=== PATIENT | male | born 1940 | race Two or more races ===

== ENCOUNTER 2024-11-27 07:10 | Day surgery (SDC) | payer MEDICARE, MEDICAID, SELFPAY ==
[2024-11-26 11:29] VITALS: BMI 23.3
[2024-11-26 12:36] LABS: Basophils # (Auto) 0.1 Thou/mm3 (0.0-0.2); Basophils % (Auto) 1 % (0-2.5); Eosinophils # (Auto) 0.2 Thou/mm3 (0.0-0.5); Eosinophils % (Auto) 3 % (0-10); Hematocrit 33.9 % (41.0-53.0); Hemoglobin 11.3 g/dL (13.5-16.0); Immature Granulocytes % (Auto) 0 % (0-0); Immature Granulocytes Auto 0.02 Thou/mm3 (0.00-0.00); Lymphocytes # (Auto) 2.1 Thou/mm3 (1.0-4.8); Lymphocytes % (Auto) 36 % (10-50); Mean Corpuscular HGB Conc 33.3 g/dl (31.0-37.0); Mean Corpuscular Hemoglobin 31.3 pg (25.0-35.0); Mean Corpuscular Volume 94 fL (80-100); Monocytes # (Auto) 0.5 Thou/mm3 (0.0-0.8); Monocytes % (Auto) 10 % (0-12); Neutrophils # (Auto) 2.8 Thou/mm3 (1.8-7.7); Neutrophils % (Auto) 50 % (37-80); Nucleated Red Blood Cell % 0 /100 WBC (0); Platelet Count 158 Thou/mm3 (140-440); RDW Standard Deviation 51.6 fL (35.1-43.9); Red Blood Count 3.61 Miln/mm3 (4.50-5.90); White Blood Count 5.7 Thou/mm3 (3.8-10.6)
[2024-11-26 12:44] LABS: Partial Thromboplastin Time 25.9 Seconds (22.0-36.0); Prothrombin Time 11.3 Seconds (9.0-12.2)
[2024-11-26 12:53] LABS: Alanine Aminotransferase 25 U/L (10-49); Albumin, Serum 4.1 gm/dL (3.4-4.8); Albumin/Globulin Ratio 1.6 (1.2-2.2); Alkaline Phosphatase 185 U/L (46-116); Anion Gap 7 (7-16); Aspartate Amino Transferase 25 U/L (0-34); BUN/Creatinine Ratio 8 Ratio (12-20); Bilirubin,Total 0.5 mg/dL (0.3-1.2); Blood Urea Nitrogen 22 mg/dL (9-23); Calcium 8.8 mg/dL (8.3-10.6); Calcium (Corrected) 8.8 mg/dL (8.5-10.1); Carbon Dioxide 34.9 mMol/L (20.0-31.0); Chloride 97 mMol/L (98-107); Creatinine (Component) 2.7 mg/dL (0.6-1.3); Estimated Creatinine Clearance 23.2 mL/min (>60); Globulin 2.5 gm/dL (2.3-3.5); Glucose 386 mg/dL (74-106); Osmolality,Calculated 296 (275-295); Potassium 4.4 mMol/L (3.4-5.1); Sodium 139 mMol/L (136-145); Total Protein 6.6 gm/dL (5.7-8.2); eGFR 23 See Note
--- NOTE | 2024-11-26 15:14 | SUR.PREOP ---
Cardiac history and records reviewed with Dr Darden.
[2024-11-27] VITALS (8 sets, daily range): BP systolic 125–208; BP diastolic 56–77; PULSE 78–85; RESP 12–20; TEMP 36.1–36.4; O2SAT 96–100; BMI 23.2
[2024-11-27 07:52] LABS: Potassium 4.1 mMol/L (3.4-5.1)
--- NOTE | 2024-11-27 11:21 | SUR.PHASEI ---
1121: Pt. arrived with oral airway in place, vitals stable, breathing unlabored, no signs of distress, dressing to right arm CDI, no active bleed noted, bilateral radial pulses strong and regular, cap refill to bilateral hands less than 3 seconds, report received from César BLAIR and Lester ARCHIBALD.
--- NOTE | 2024-11-27 11:24 | PD.SUROPNT ---
Date of Procedure 11/27/24 Pre Op Diagnosis End-stage renal disease Post Op Diagnosis Same as preop diagnosis Procedure Creation of arteriovenous fistula between the proximal radial artery and the cephalic vein of the right upper extremity Findings There was excellent flow in the fistula Procedure Description With the patient supine right arm extended under laryngeal mask anesthesia the right upper extremity sterilely prepped and draped. A timeout was performed. Ultrasound was used to confirm patency of the proximal radial artery and the cephalic vein. An oblique incision was then made on the volar aspect of the proximal forearm just below the antecubital crease. The subcutaneous tissues were dissected electrocautery and blunt and sharp dissection were used to expose the median cubital vein and the origins of both the basilic and cephalic veins. The dissection was then deepened through the bicipital aponeurosis to expose the most proximal portion of the radial artery which had strong pulsation and no significant disease was appreciated. The median cubital vein was ligated distally and mobilized up to the proximal 2 cm of the cephalic and basilic vein. The proximal radial artery was then dissected free from surrounding tissues. The artery was crossclamped proximally distally along 2 arteriotomy was made. Stay sutures were placed. The vein was then cut to size and sewn to the artery with a combination of running and interrupted 7-0 Prolene sutures. Before completion the vein was back flushed and the arteries were 4 flushed and back flushed anastomotic area was copiously irrigated with heparin saline the anastomosis was completed and flow was established. There is strong palpable thrill in the origins of both the basilic and cephalic veins. And there was a strong pulse in the radial artery beyond the anastomosis. The origin of the basilic vein was then ligated to ensure soul development of the cephalic vein is the AV fistula and still leaving enough basilic vein for future fistula creation. When hemostasis was obtained and the wound was closed in layers with 3-0 Vicryl in the subcutaneous tissues and a 4 Monocryl subcuticular skin closure. A Dermabond dressing was applied the patient woke up from anesthesia and was moved to recovery in stable condition Anesthesia other (Laryngeal mask anesthesia) Implants None Pathology / specimen None Estimated Blood Loss 15 Disposition PACU Surgeon Scar Chand MD Surgical Staff Operation Date: 11/27/24 09:30 Case Staff Anesthesiologist: Rommel Suazo RN First Assistant: Melonie Shrestha
--- NOTE | 2024-11-27 11:29 | SUR.PHASEI ---
pt in [facility] with oral airway present, breathing unlabored, dressing to right upper extremity clean, dry, and intact, report from Olivia BLAIR
--- NOTE | 2024-11-27 12:05 | SUR.PHASEII ---
1205: Pt. AAOx4, vitals stable, breathing unlabored, no complaint of pain or nausea, dressing to right arm CDI, no active bleed noted, report received from Asha Thompson RN.
--- NOTE | 2024-11-27 12:25 | SUR.PHASEII ---
1225: Pt. AAOx4, vitals stable, breathing unlabored, no complaint of pain or nausea, dressing to right arm CDI, no active bleed noted, pt. tolerated sips of water well, bruit and thrill present to right AVF, pt. placed in sling, educated pt. family how to check for thrill, gave discharge instructions to the pt. and his ride both verbalized understanding and had no further questions. Pt. left with all personal belongings.
== END 2024-11-27 12:25 | disposition home or self-care (01) ==
PROVIDERS: Anesthesiology; PCP Family Medicine; Referring Provider Surgery Vascular Surgery; Visit Provider Surgery Vascular Surgery
PROC: (CPT 36825; principal; 2024-11-27 09:15)
DX: E11.22 Type 2 diabetes mellitus with diabetic chronic kidney disease (principal); I12.0 Hypertensive chronic kidney disease with stage 5 chronic kidney disease or end stage renal disease; N18.6 End stage renal disease; E78.00 Pure hypercholesterolemia, unspecified
CPT/HCPCS: 36821; 36415; 80053; 84132; 85025; 85610; 85730; A4217; A4649; J0690; J1644; J1885; J2405; J2440; J2704; J3010; J3490; J0665

== ENCOUNTER → 2025-05-20 | Outpatient (CLI) | payer MEDICARE, MEDICAID, SELFPAY ==
[2025-05-20 10:50] LABS: Cardiac Risk Estimate 2.9 RATIO (4.0-6.7); Cholesterol 141 mg/dL (132-200); HDL Cholesterol 48 mg/dL (40-60); LDL Cholesterol,Calculated 75 mg/dL (0-130); Triglycerides 92 mg/dL (30-150)
== END | disposition home or self-care (01) ==
LOC: COPL 09:08
PROVIDERS: PCP Family Medicine; Referring Provider Internal Medicine Cardiovascular Disease; Visit Provider Internal Medicine Cardiovascular Disease
DX: E78.5 Hyperlipidemia, unspecified (principal)
CPT/HCPCS: 36415; 80061